=== PATIENT | male | born 1995 | race Caucasian/White ===

== ENCOUNTER 2019-02-22 00:04 | Emergency (ER) | payer OTHER ==
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
[2019-02-22 04:27] VITALS: BP 110/84
== END 2019-02-22 04:25 | disposition home or self-care (01) ==
LOC: ER 00:04
DX: R07.81 Pleurodynia (principal); R10.9 Unspecified abdominal pain; V89.2XXA Person injured in unspecified motor-vehicle accident, traffic, initial encounter
CPT/HCPCS: 71111; 99283